=== PATIENT | male | born 1955 | race Caucasian/White ===

== ENCOUNTER 2016-05-16 10:41 | Inpatient (IN) | payer BC ==
[~2016-05-16] VITALS: Ht 167.6 cm; Wt 107.2 kg
[~2016-05-16 10:41] MED LIST: RBTUDL5 PO
[2016-05-16 11:16] LABS: HEMATOCRIT 44.5 % (42-52); MEAN CELL VOLUME 87.1 fL (80-100); MEAN CORPUSCULAR HEMOGLOBIN 31.9 pg (25-34); MEAN CORPUSCULAR HGB CONC 36.6 g/dl (32-36); MEAN PLATELET VOLUME 10.1 fL (7.4-10.4); PLATELET COUNT 264 K/uL (130-400); RED BLOOD COUNT 5.11 M/uL (4.7-6.1); WHITE BLOOD COUNT 9.49 K/uL (4.8-10.8)
[2016-05-16 11:25] LABS: PARTIAL THROMBOPLASTIN RATIO 0.9; PROTHROMBIN TIME (PATIENT) 10.7 SECONDS (9.0-12.0)
--- NOTE | 2016-05-16 11:29 | DIAGNOSTIC IMAGING REPORT ---
SINGLE VIEW CHEST CLINICAL HISTORY: Atypical chest pain. FINDINGS: An AP, portable, upright chest radiograph is obtained No prior studies are available for comparison at the time of dictation. The examination is degraded by portable technique, large body habitus, and patient rotation. The cardiomediastinal heart is top normal for projection. Peribronchial thickening suggests lower airway disease. Subtle airspace opacities are present in the lower lobes bilaterally. No large pleural effusion is identified. No pneumothorax is seen. The bony thorax is grossly intact. IMPRESSION: There is peribronchial thickening with patchy airspace opacities identified in the lower lobes bilaterally. Correlate clinically for evidence of an infectious/inflammatory pneumonitis. Radiographic follow-up to resolution is recommended. Electronically signed by: Doc Ruffin M.D. 05/16/2016 11:28 AM Dictated Date/Time: 05/16/2016 11:26 AM
[2016-05-16 11:34] LABS: BUN/CREATININE RATIO 13.3 (10-20); CALCIUM 9.2 mg/dl (8.5-10.1); CREATININE 1.2 mg/dl (0.60-1.40); POTASSIUM 4.5 mmol/L (3.5-5.1)
[2016-05-16] MEDS ORDERED: ASPI81TA28 PO (11:38)
[2016-05-16] MEDS ORDERED: VNTHFA/IN INH (11:39)
[2016-05-16 11:40] LABS: ALB/GLOB RATIO 1.1 (0.9-2); CKMB/CK RATIO 1.8 (0-3.0)
--- NOTE | 2016-05-16 12:06 | EMERGENCY ROOM VISIT NOTE ---
History Report prepared by Chandrakant: Gage Godoy Under the Supervision of: Dr. Emery Edward M.D. First contact with patient: 11:43 Chief Complaint: CARDIAC ASSESSMENT Stated Complaint: SHORTNESS OF BREATH Nursing Triage Summary: Pt c/o SOB, worse with exertion x several months Pt reports he also has intermittent CP Pt saw therapist asst last week and told his EKG was abnormal "they were supposed to schedule an echo and stress test but we have not heard anything" Pt unable to lay flat History of Present Illness The patient is a 60 year old male who presents to the Emergency Room with complaints of worsening shortness of breath since yesterday. The patient describes the discomfort as feeling like he can't get enough air. This discomfort is worsened significantly with laying flat. Yesterday, the patient complained of chest pain that was coming and going throughout the day. He also complains of feeling dizzy yesterday and today. He also notes one episode of feeling like he was going to pass out. Per patient's , the patient has been having similar symptoms for the past 3 months and they presented to the ED today for further evaluation since his shortness of breath and dizziness were worse than usual. Last week, the patient presented to his PCP who saw an abnormality on his EKG. The patient is supposed to follow-up for a stress test and echo but has not heard back from the office yet. Since last week, the patient has been on an inhaler and a baby Aspirin a day. He denies diaphoresis, nausea, or swelling in his ankles. Source of History: patient Onset: yesterday Position: chest Timing: worsening Modifying Factors (Worsening): other (laying flat) Associated Symptoms: + chest pain, No diaphoresis, No nausea Note: Other associated symptoms: feeling dizzy, feeling like he was going to pass out Denies: swelling in his ankles Review of Systems All systems have been listed, reviewed, and are negative other than those previously mentioned. Please see Additional Medical History Sheet. Past Medical & Surgical Medical Problems: (1) Kidney stones (2) Shortness of breath Family History Patient reports no known family medical history. Social History Smoking Status: Never Smoker Alcohol Use: occasionally Drug Use: none Marital Status: Housing Status: lives with family Occupation Status: employed Current/Historical Medications Scheduled Aspirin (Aspirin Ec), 81 MG PO DAILY Scheduled PRN Albuterol Hfa (Ventolin Hfa), 2 PUFFS INH Q4H PRN for SOB/Wheezing Allergies Coded Allergies: No Known Allergies (Unverified , 05/16/16) Physical Exam Vital Signs Date Time Temp Pulse Resp B/P Pulse Ox O2 Delivery O2 Flow Rate FiO2 05/16/16 13:00 90 22 140/93 95 Room Air 05/16/16 12:02 99 24 161/94 96 Room Air 05/16/16 11:14 98 05/16/16 11:11 95 05/16/16 10:51 36.8 104 16 178/93 95 Room Air Physical Exam GENERAL: Patient awake, alert, oriented x 3. Patient follows commands. Patient does not appear toxic. Patient is adequately hydrated and well- nourished. SKIN: No erythema, pallor, cyanosis or rash HEENT: Normal head, pupils equal, reactive to light and accommodation. Neck: Without adenopathy, no neck vein distention. LUNGS: Clear to auscultation. No wheezes, no rales, no rhonchi. HEART: Regular rate. No murmurs. No gallops. No rubs ABDOMEN: Obese. No masses, no rebound, no hepatomegaly or splenomegaly. EXTREMITIES: No signs of trauma. No pedal or pretibial edema. No calf or thigh tenderness. NEUROLOGIC: Cranial nerves II-XII within normal limits. No gross motor sensory function deficits. Medical Decision & Procedures ER Provider Diagnostic Interpretation: X ray results are stated below per my interpretation and the radiologist's interpretation. SINGLE VIEW CHEST CLINICAL HISTORY: Atypical chest pain. FINDINGS: An AP, portable, upright chest radiograph is obtained No prior studies are available for comparison at the time of dictation. The examination is degraded by portable technique, large body habitus, and patient rotation. The cardiomediastinal heart is top normal for projection. Peribronchial thickening suggests lower airway disease. Subtle airspace opacities are present in the lower lobes bilaterally. No large pleural effusion is identified. No pneumothorax is seen. The bony thorax is grossly intact. IMPRESSION: There is peribronchial thickening with patchy airspace opacities identified in the lower lobes bilaterally. Correlate clinically for evidence of an infectious/inflammatory pneumonitis. Radiographic follow-up to resolution is recommended. Electronically signed by: Doc Ruffin M.D. 05/16/2016 11:28 AM Dictated Date/Time: 05/16/2016 11:26 AM Laboratory Results 05/16/16 11:07 05/16/16 11:07 Test 05/16/16 11:07 Red Blood Count 5.11 M/uL (4.7-6.1) Mean Corpuscular Volume 87.1 fL (80-100) Mean Corpuscular Hemoglobin 31.9 pg (25-34) Mean Corpuscular Hemoglobin Concent 36.6 g/dl (32-36) RDW Standard Deviation 44.3 fL (36.4-46.3) RDW Coefficient of Variation 13.9 % (11.5-14.5) Mean Platelet Volume 10.1 fL (7.4-10.4) Prothrombin Time 10.7 SECONDS (9.0-12.0) Prothromb Time International Ratio 1.0 (0.9-1.1) Activated Partial Thromboplast Time 23.3 SECONDS (21.0-31.0) Partial Thromboplastin Ratio 0.9 D-Dimer 710 ug/L FEU (0-500) Anion Gap 9.0 mmol/L (3-11) Est Creatinine Clear Calc Drug Dose 74.3 ml/min Estimated GFR () 74.7 Estimated GFR (Non- 64.4 BUN/Creatinine Ratio 13.3 (10-20) Calcium Level 9.2 mg/dl (8.5-10.1) Total Bilirubin 0.7 mg/dl (0.2-1) Aspartate Amino Transf (AST/SGOT) 48 U/L (15-37) Alanine Aminotransferase (ALT/SGPT) 85 U/L (12-78) Alkaline Phosphatase 92 U/L (45-117) Total Creatine Kinase 201 U/L (39-308) Creatine Kinase MB 3.7 ng/ml (0.5-3.6) Creatine Kinase MB Ratio 1.8 (0-3.0) Troponin I 0.055 ng/ml (0-0.045) Pro-B-Type Natriuretic Peptide 631 pg/ml (0-900) Total Protein 7.5 gm/dl (6.4-8.2) Albumin 4.0 gm/dl (3.4-5.0) Globulin 3.5 gm/dl (2.5-4.0) Albumin/Globulin Ratio 1.1 (0.9-2) Laboratory results as stated above per my review. Medications Administered Medications (Trade) Dose Ordered Sig/Cathy Route Start Time Stop Time Status Last Admin Dose Admin Enoxaparin Sodium 40 mg 40 mg Q24H SC 05/16/16 13:00 06/15/16 12:59 05/16/16 15:51 40 MG Sodium Chloride (1/2 Nss 1000ml) 1,000 ml @ 100 mls/hr Q10H IV 05/16/16 12:54 06/15/16 12:53 05/16/16 15:53 100 MLS/HR ECG Indication: SOB/dyspnea Rate (beats per minute): 107 Rhythm: sinus tachycardia Findings: LBBB, PVC (occassional), left axis deviation Comparison ECG Date: When compared to EKG from 05/09/2016, continued left bundle branch block and new ST elevation in precordial leads. ED Course 1144: Past medical records reviewed. The patient was evaluated in room B4. A complete history and physical examination was performed. 1223: At this time, I discussed the patient's case with Dr. Yair COLON and he agreed to accept the patient for further evaluation. Medical Decision I considered multiple diagnoses including myocardial infarction, chest wall pain , pericarditis, myocarditis, aortic emergencies, pulmonary embolism, congestive heart failure, GI causes, and other significant cardiopulmonary disorders. The patient's been having some exertional his dyspnea for months but seems to be much worse over the past 2-3 days. Multiple labs, EKG and imaging were obtained. Please see above. The patient's blood sugar is elevated. The patient's troponin is elevated. The patient is having multiple PVCs and at times bigeminy. There is some questionable elevation of his ST segments in his precordial leads although he has a pre-existing left bundle-branch block. I discussed care with the patient, his and the hospitalist. The patient will require further evaluation in the hospital. Consults Time Called: 1218 Consulting Physician: Dr. Yair COLON Returned Call: 1223 At this time, I discussed the patient's case with Dr. Mazariegos and he agreed to accept the patient for further evaluation. Impression Primary Impression: Acute coronary syndrome Additional Impression: Hyperglycemia Scribe Attestation The scribe's documentation has been prepared under my direction and personally reviewed by me in its entirety. I confirm that the note above accurately reflects all work, treatment, procedures, and medical decision making performed by me. Departure Information Dispostion Being Evaluated By Hospitalist Referrals Jake Arredondo PA-C (PCP) Problem Qualifiers
[2016-05-16] MEDS ORDERED: SODIUM CHLORIDE 0.45% 1000ML 1,000 ML IV SCH (12:54)
[2016-05-16] MEDS ORDERED: ONDANSETRON INJ 2 MG/ML 2 ML VIAL IV PRN (13:00)
[2016-05-16] MEDS ORDERED: MoRPHine SULFATE 2 MG/ML CARP IV PRN (13:00)
[2016-05-16] MEDS ORDERED: NITROGLYCERIN 0.4 MG SL PER TAB CHARGE SL PRN (13:00)
[2016-05-16] MEDS ORDERED: ALUMINUM/MAGNESIUM/SIMETH (MAALOX MAX) 30 ML UDC PO PRN (13:00)
[2016-05-16] MEDS ORDERED: ACETAMINOPHEN 325 MG TAB PO PRN (13:00)
--- NOTE | 2016-05-16 13:15 | History and Physical ---
History & Physical Date & Time of Service: May 16, 2016 at 13:06 Chief Complaint: Shortness Of Breath Primary Care Physician: Jake Arredondo PA-C History of Present Illness 60 y/o male without reported medical history presents today with complaint of an episode of near-syncope and a 3 month history of chronic intermittent shortness of breath. The SOB started following a URI in January of this past year which was treated and resolved. The SOB itself is present predominantly while laying flat and manifests as SOB w/ exertion. It has not been accompanied by chest pain. He was referred to a hydraulic press tender (Raimundo) and had an abn EKG and referred for stress and echo which were being scheduled when he had this recent episode. He had been feeling SOB overnight and had trouble sleeping, as well as constipation - when he got up in the AM and took a hot shower, he felt suddenly syncopal - tunnel vision and feeling like he would pass out. He did not (no HI/LOC). Called his spouse for a ride to the [facility] ED. At present, his SOB is at baseline. He reports no chest pain, palpitations, vision/hearing changes, lightheadedness, n/v/d, CARREON, numbness/tingling, weakness. Past Medical/Surgical History Medical Problems: (1) Kidney stones Status: Chronic Family History Myocardial infarction in first degree male relative of known age 5 siblings w/ AMI all btw 40 and 60 y/o Social History Smoking Status: Never Smoker Smokeless Tobacco Use: Yes Alcohol Use: socially Drug Use: none Marital Status: Housing status: lives with family Occupational Status: employed Immunizations History of Influenza Vaccine: Unknown Multi-Drug Resistant Organisms History of MDRO: No Allergies Coded Allergies: No Known Allergies (Unverified , 05/16/16) Home Medications Scheduled Aspirin (Aspirin Ec), 81 MG PO DAILY Scheduled PRN Albuterol Hfa (Ventolin Hfa), 2 PUFFS INH Q4H PRN for SOB/Wheezing Review of Systems Constitutional: + fatigue, No chills, No fever, No sweats, No weakness Eyes: No discharge, No redness, No worsening of vision ENT: No hearing loss, No nasal symptoms, No sore throat Respiratory: + dyspnea at rest, + dyspnea on exertion, + shortness of breath, No cough, No wheezing Cardiovascular: No chest pain, No edema, No palpitations Abdomen: + constipation, No diarrhea, No nausea, No pain Musculoskeletal: No joint pain, No muscle pain Neurologic: No balance problems, No numbness/tingling, No weakness Integumentary: No itch, No rash Allergic / Immunologic: No environmental allergies, No seasonal allergies Physical Exam Vital Signs Date Time Temp Pulse Resp B/P Pulse Ox O2 Delivery O2 Flow Rate FiO2 05/16/16 13:00 90 22 140/93 95 Room Air 05/16/16 12:02 99 24 161/94 96 Room Air 05/16/16 11:14 98 05/16/16 11:11 95 05/16/16 10:51 36.8 104 16 178/93 95 Room Air General Appearance: no apparent distress, + obese Head: normocephalic, atraumatic Eyes: normal inspection, PERRL, EOMI ENT: normal ENT inspection, hearing grossly normal, pharynx normal Neck: supple, no adenopathy, thyroid normal Respiratory/Chest: chest non-tender, lungs clear, normal breath sounds, + respiratory distress (mild) Cardiovascular: regular rate, rhythm, no JVD, no murmur, + pertinent finding ( trace b/l LE edema) Abdomen/GI: normal bowel sounds, non tender, soft, no organomegaly Extremities/Musculoskelatal: normal inspection, no calf tenderness 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 tested, no motor/sensory deficits, alert, normal mood/affect, oriented x 3 Skin: normal color, warm/dry, no rash Diagnostics Laboratory Results Results Past 24 Hours Test 05/16/16 11:07 Range/Units White Blood Count 9.49 4.8-10.8 K/uL Red Blood Count 5.11 4.7-6.1 M/uL Hemoglobin 16.3 14.0-18.0 g/dL Hematocrit 44.5 42-52 % Mean Corpuscular Volume 87.1 80-100 fL Mean Corpuscular Hemoglobin 31.9 25-34 pg Mean Corpuscular Hemoglobin Concent 36.6 32-36 g/dl RDW Standard Deviation 44.3 36.4-46.3 fL RDW Coefficient of Variation 13.9 11.5-14.5 % Platelet Count 264 130-400 K/uL Mean Platelet Volume 10.1 7.4-10.4 fL Prothrombin Time 10.7 9.0-12.0 SECONDS Prothromb Time International Ratio 1.0 0.9-1.1 Activated Partial Thromboplast Time 23.3 21.0-31.0 SECONDS Partial Thromboplastin Ratio 0.9 Sodium Level 138 136-145 mmol/L Potassium Level 4.5 3.5-5.1 mmol/L Chloride Level 104 98-107 mmol/L Carbon Dioxide Level 25 21-32 mmol/L Anion Gap 9.0 3-11 mmol/L Blood Urea Nitrogen 16 7-18 mg/dl Creatinine 1.20 0.60-1.40 mg/dl Est Creatinine Clear Calc Drug Dose 74.3 ml/min Estimated GFR () 74.7 Estimated GFR (Non- 64.4 BUN/Creatinine Ratio 13.3 10-20 Random Glucose 196 70-99 mg/dl Calcium Level 9.2 8.5-10.1 mg/dl Total Bilirubin 0.7 0.2-1 mg/dl Aspartate Amino Transf (AST/SGOT) 48 15-37 U/L Alanine Aminotransferase (ALT/SGPT) 85 12-78 U/L Alkaline Phosphatase 92 45-117 U/L Total Creatine Kinase 201 39-308 U/L Creatine Kinase MB 3.7 0.5-3.6 ng/ml Creatine Kinase MB Ratio 1.8 0-3.0 Troponin I 0.055 0-0.045 ng/ml Total Protein 7.5 6.4-8.2 gm/dl Albumin 4.0 3.4-5.0 gm/dl Globulin 3.5 2.5-4.0 gm/dl Albumin/Globulin Ratio 1.1 0.9-2 Impression Assessment and Plan 60 y/o male w/ heavy FHx of cardiac dz and 3 months of SOB w/ abn EKG @ [facility] cardiology w/ SOB and elevated troponin w/ presyncope Shortness of breath - etiologies considered include: ACS, CHF, pericarditis, other underlying CV disease, w/ elevated troponin - obtain outpt EKG - admit to tele - EKG in AM - trend troponin x 3 - TSH - morphine PRN chest pain - ASA 81mg qAM - nitro SL PRN chest pain - consult cardiology (Raimundo pt, recently eval'd) HTN - no h/o similar - hydralazine 5mg IV q6P - t/c further agent if no improvement and based on testing Dispo: Shortness of breath of unknown cause w/ elevated troponin, LBBB on EKG VTE Prophylaxis VTE Risk Assessment Done? Y/N: Yes Risk Level: Moderate Note Addendum. Elevated D-dimer but in the setting of chronic issue without tachycardia with abnormal echocardiogram - after discussion w/ Dr. Eubanks, will perform cardiology evaluation primarily and hold on imaging for dimer at this time pending cath to avoid overload w/ dye. pt informed and understands.
[2016-05-16 13:40] VITALS: BP 158/106; PULSE 97; TEMP 36.8; Ht 167.6 cm; Wt 107.2 kg
[2016-05-16] MEDS ORDERED: PERFLUTREN LIPID MICROSPHERE (DEFINITY) IV ONE (14:40)
[2016-05-16] MEDS ORDERED: OPTIRAY 320 IV PRN (15:30)
--- NOTE | 2016-05-16 15:45 | ECHOCARDIOGRAM REPORT ---
*NOTICE TO RECEIVING [employer] This information is strictly Confidential and protected under [place] law. [place] law prohibits you from making any further disclosure of this information unless further disclosure is expressly permitted by the written consent of the person to whom it pertains or is authorized by law. A general authorization for the release of medical or other information is not sufficient for this purpose. Hospital accepts no responsibility if the information is made available to any other person, INCLUDING THE PATIENT. Interpretation Summary * Name: ZANE LALA Study Date: 05/16/2016 02:13 PM BP: 158/106 mmHg * Patient Location: C.2T\S\S242\S\2 HR: 97 * : 1955 (M/d/yyyy) Gender: Male Height: 66 in * Age: 60 yrs Ethnicity: CA Weight: 242 lb * Ordering Physician: Corwin Eubanks * Referring Physician: Self, Referred * Performed By: Surekha Mcintyre RDCS * * Reason For Study: CHF * BSA: 2.2 m2 * History: CHF * -- Conclusions -- * The left ventricle is moderately dilated. * Left ventricular systolic function is severely reduced. * The left atrium is moderately dilated. * Poorly characterized. At least stage I Procedure Details * A contrast injection of Definity was performed to improve assessment of LV function. * Contrast was injected into an intravenous site in the right arm. * One vial of Definity ultrasound contrast was diluted in normal saline to a total volume of 10 ml. A total of '2' ml of solution was administered during imaging. * Lot # [id number] of Definity utilized for procedure. * Expiration date JUN 07. * The attending nurse who injected the contrast agent was SURESH CRUMP. Left Ventricle * The left ventricle is moderately dilated. * There is normal left ventricular wall thickness. * Ejection Fraction = 20-25%. * Left ventricular systolic function is severely reduced. * The septum is akinetic. The remaining rebolledo are severely hypokinetic Right Ventricle * The right ventricle is normal in size and function. Atria * The left atrium is moderately dilated. * Right atrial size is normal. Mitral Valve * The mitral valve anatomy is normal. * There is no mitral regurgitation noted. Tricuspid Valve * The tricuspid valve is not well visualized, but is grossly normal. * There is trace tricuspid regurgitation. Aortic Valve * The aortic valve is not well visualized. * No hemodynamically significant valvular aortic stenosis. * Trace aortic regurgitation. Pericardium/Pleural * There is no pericardial effusion. Left Ventricular Diastolic Function * Poorly characterized. At least stage I MMode 2D Measurements and Calculations IVSd 0.97 cm IVSs 1.6 cm LVIDd 6.0 cm LVIDs 4.8 cm LVPWd 1.3 cm LVPWs 1.8 cm IVS/LVPW 0.75 FS 20.6 % EDV(Teich) 179.0 ml ESV(Teich) 105.1 ml EF(Teich) 41.3 % EDV(cubed) 214.4 ml ESV(cubed) 107.4 ml EF(cubed) 49.9 % % IVS thick 67.9 % % LVPW thick 35.6 % LV mass(C)d 288.7 grams LV mass(C)dI 133.1 grams/m\S\2 LV mass(C)s 358.5 grams LV mass(C)sI 165.3 grams/m\S\2 SV(Teich) 73.9 ml SI(Teich) 34.1 ml/m\S\2 SV(cubed) 107.0 ml SI(cubed) 49.3 ml/m\S\2 LVAd ap4 41.3 cm\S\2 LVLd ap4 9.2 cm EDV(MOD-sp4) 152.0 ml LVAs ap4 32.0 cm\S\2 LVLs ap4 8.9 cm ESV(MOD-sp4) 96.4 ml EF(MOD-sp4) 36.6 % LVAd ap2 34.4 cm\S\2 LVLd ap2 8.8 cm EDV(MOD-sp2) 108.0 ml LVAs ap2 25.8 cm\S\2 LVLs ap2 8.8 cm ESV(MOD-sp2) 61.6 ml EF(MOD-sp2) 43.0 % SV(MOD-sp4) 55.6 ml SI(MOD-sp4) 25.6 ml/m\S\2 SV(MOD-sp2) 46.4 ml SI(MOD-sp2) 21.4 ml/m\S\2
[2016-05-16 15:49] VITALS: BP 149/95; PULSE 97; TEMP 36.8; O2SAT 93
[2016-05-16] MEDS: ENOXAPARIN 40 MG/0.4 ML SYR SC SCH (15:51)
[2016-05-16 16:01] VITALS: O2SAT 93
--- NOTE | 2016-05-16 16:08 | CARDIOLOGY CONSULTATION ---
DATE OF CONSULTATION: 05/16/2016 REFERRING PHYSICIAN: Dr. Corwin Shah. HISTORY OF PRESENT ILLNESS: Mr. Ronald Gonzalez is a 60-year-old gentleman known to me from clinic who has been experiencing shortness of breath primarily nighttime for several months. Generally speaking, the patient has difficulty lying flat in bed due to nasal congestion and a sense of dyspnea. The patient had been tried on several regimens as an outpatient in order to alleviate his symptoms including antibiotics and inhaled beta antagonist without relief. The patient presented cardiology clinic several weeks ago and at that time was advised to undergo outpatient testing involving echocardiogram and perfusion imaging. The patient states that last evening, he became more short of breath. He could not lie flat in bed and needed to sit upright. He ambulated around his residence with minimal improvement in his symptoms. He eventually went to take a warm shower and during the shower he started feeling dizzy and lightheaded and he had symptoms consistent with presyncope. He sat down and the symptoms resolved. The patient subsequently presented to the Emergency Room for evaluation. He states that prior to arrival in the Emergency Room, his symptoms had all but resolved. At this time the patient does not complain of significant dyspnea, dizziness or lightheadedness. The patient has been struggling with symptoms for approximately 4 months. He does not have significant exertional dyspnea most of the time, but did report one episode after shoveling snow where he was notably dyspneic. He has rare symptoms of chest discomfort that are well localized in the left pectoral area. These episodes are not exclusively associated with exertion and generally are shortlived, lasting only a few minutes in duration. PAST MEDICAL HISTORY: Significant for allergic rhinitis and nephrolithiasis. OUTPATIENT MEDICATIONS: Include a daily baby aspirin and albuterol on p.r.n. basis. MEDICAL ALLERGIES: No known medical allergies. PAST SURGICAL HISTORY: No known surgical history. FAMILY HISTORY: The patient does have several brothers, he is the youngest of his siblings. They do have evidence of heart disease, but it is not clear whether this is premature in nature. 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 He is a nonsmoker and denies heavy alcohol. ROS: A complete 10-system ROS was performed, the pertinent positives were noted in the HPI PHYSICAL EXAMINATION: GENERAL: The patient does not appear in any acute distress. He is a pleasant individual who is alert and oriented. His mood and affect appeared normal. He answered all questions appropriately. VITAL SIGNS: Include blood pressure 158/106, his pulse is 97. HEENT: Sclerae are anicteric. Extraocular movements were intact. Palpation of submandibular region did not reveal any significant lymphadenopathy. The carotids are palpable bilaterally. There are no bruits on auscultation. There is no evidence of thyromegaly. Cannot appreciate any jugular venous distention, although the neck tissues are redundant. LUNGS: Auscultation of both lung mccullough reveal them to be clear. He had good air movement. There were no rales, wheezes or rhonchi. There was no use of accessory muscles with respiration. HEART: Revealed him to be in a regular rhythm with occasional ectopy. I did not appreciate any murmur on exam. ABDOMEN: Soft and nontender but obese. EXTREMITIES: Evaluation both wrists revealed radial pulses that were equal in intensity. There is no evidence of cyanosis or clubbing. Evaluation of lower extremities did not reveal any significant peripheral edema. I did not appreciate any rashes on exam today. LABORATORY STUDIES: Obtained in the Emergency Department include white cell count 9.4, hemoglobin 16.3, platelet count of 264. Sodium is 138, potassium is 4.5, BUN was 16, creatinine was 1.2. Liver function tests are mildly elevated with an AST of 48 and ALT of 85. Cardiac troponin was 0.055. Single view chest x-ray was obtained in the Emergency Department, which was concerning for patchy air space opacities in the lower lobes suggestive of an inflammatory or infectious process. ASSESSMENT AND PLAN: 1. Dyspnea. The patient has had several months of dyspnea that generally speaking is stable in character. Last evening and earlier this morning he appeared to have acute worsening of these symptoms, the etiology is yet unclear. Most of the symptoms in the past have been related to clogged nasal passages, although there was an element of overt dyspnea even when his nasal passages were clear. As an outpatient he had several tests scheduled, which we will complete here in the hospital. I did order an echocardiogram today and we will see what his left ventricular function looks like. I do not believe he has significant valvular disease based on his physical examination. He does have an element of hypertension, he could have an element of diastolic dysfunction as well. Pending results of the echocardiogram and serum biomarkers we will recommend an evaluation of his coronaries. If he has significant reduced left ventricular systolic function then we will recommend coronary angiography as well as if he has elevations in his cardiac biomarkers. 2. Elevated cardiac troponin. This is minimally elevated, I think we will wait for serial markers. If they are within normal limits we could probably proceed with perfusion imaging rather than coronary angiography. 3. Hypertension. The patient's blood pressure is slightly elevated today, continue to monitor during this hospitalization and depending on the results of his other tests recommend antihypertensive therapy. 4. Left bundle-branch block: Chronic. 5. Pre-syncope: Not likley related to conduction disease, but more likely situational given the hot shower, etc. WIll need an evaluation of his LV function and monitoring on telemetry. At this point it seems reasonable to continue him on his present medical therapy which includes aspirin and enoxaparin, since he is symptom-free currently I do not believe there is additional need for nitrates or aggressive diuresis. Should have the results of his echocardiogram shortly and we could base additional recommendations upon the results of that test. ADDENDUM: I reviewed his echocardiogram. He has severely reduced LV function. I discussed coronary angiography and, if he can lay flat tomorrow, will plan on a cardiac cath. BIENVENIDO
[2016-05-16] MEDS ORDERED: FUROSEMIDE INJ 20 MG in SYRINGE 0 ML IV ONE (18:45)
[2016-05-16 19:27] LABS: THYROID STIMULATING HORMONE 2.21 uIu/ml (0.300-4.500)
[2016-05-16 19:57] VITALS: BP 148/82; PULSE 103; TEMP 36.3; O2SAT 92
[2016-05-16] MEDS: NITROGLYCERIN OINT 2% 1GM PACKET EXT SCH (21:55)
[2016-05-17] VITALS (21 sets, daily range): BP systolic 101–162; BP diastolic 61–113; PULSE 71–132; TEMP 36.8–37; O2SAT 93–98
[2016-05-17] MEDS: NITROGLYCERIN OINT 2% 1GM PACKET EXT SCH ×2 (03:36→09:21)
[2016-05-17 09:17] LABS: HEMATOCRIT 42.8 % (42-52); MEAN CELL VOLUME 87.2 fL (80-100); MEAN CORPUSCULAR HEMOGLOBIN 31.2 pg (25-34); MEAN CORPUSCULAR HGB CONC 35.7 g/dl (32-36); MEAN PLATELET VOLUME 9.8 fL (7.4-10.4); PLATELET COUNT 254 K/uL (130-400); RED BLOOD COUNT 4.91 M/uL (4.7-6.1)
[2016-05-17] MEDS: ASPIRIN 81 MG ECTAB PO SCH (09:21)
[2016-05-17 09:41] LABS: BUN/CREATININE RATIO 13.9 (10-20); CALCIUM 8.8 mg/dl (8.5-10.1); CREATININE 1.1 mg/dl (0.60-1.40); POTASSIUM 3.9 mmol/L (3.5-5.1)
[2016-05-17] MEDS ORDERED: NiCARDipine HCL INJ 2.5 MG/ML 10 ML AMP ONE (12:55)
[2016-05-17] MEDS ORDERED: HEPARIN SOD (PORCINE) 1000 UNIT/ML 10 ML VIAL ONE (12:56)
[2016-05-17] MEDS ORDERED: NITROGLYCERIN/D5W 100MCG/ML 20ML SYR ONE (12:56)
[2016-05-17] MEDS ORDERED: MIDAZOLAM HCL 1 MG/ML 2ML VIAL ONE (13:09)
[2016-05-17] MEDS ORDERED: FENTANYL CITRATE INJ 50 MCG/1 ML 2 ML VIAL ONE (13:09)
--- NOTE | 2016-05-17 13:37 | Procedure Note ---
Pre-Mod Sedation Assessment General Date of Moderate Sedation: May 17, 2016. Vital Signs: Vital Signs Past 12 Hours Date Time Temp Pulse Resp B/P Pulse Ox O2 Delivery O2 Flow Rate FiO2 05/17/16 13:30 66 18 150/90 97 Room Air 05/17/16 12:01 36.9 71 18 138/70 96 Room Air 05/17/16 11:30 36.9 71 18 140/93 96 Room Air 2.0 05/17/16 08:53 37.0 18 156/99 98 Room Air 05/17/16 08:00 Nasal Cannula 2.0 05/17/16 08:00 36.8 75 18 134/80 93 Room Air 05/17/16 04:00 Nasal Cannula 2.0 05/17/16 03:33 37.0 91 18 117/73 93 Room Air Review Cardiovascular: regular rate, rhythm Pre-Sedation Airway Assessment Oral Cavity: WNL Able to Visualize Vocal Cords: No Short Thick Neck: No Hx of Sleep Apnea: No Smoking Status: Never Smoker Mallampati Classification: Class III ASA Classification: Class III Procedure Planning Contraindications-for Mod Sed: None Yes Notes The planned sedation has been discussed with the patient and consent obtained. I have identified the patient, determined the appropriateness of sedation and have assessed the patient immediately prior to the procedure. All medicine(s) and interventions are by my order.
--- NOTE | 2016-05-17 13:41 | Cardiology Procedure Brief Nt ---
Preliminary Cardiology Note Procedure Date May 17, 2016. Pre-Procedure Diagnosis CHF Post-Procedure Diagnosis non-ischemic CM Procedure(s) Performed coronary angiography, right radial Credit Card Associate Raimundo Keyboard Instrument Repairer(s) none Estimated Blood Loss 10cc Medication(s) Versed/fentanyl Preliminary Findings Normal coronaries Recommendations Medical therapy Specimens None Complication(s) None Disposition PCU
[2016-05-17] MEDS: ENOXAPARIN 40 MG/0.4 ML SYR SC SCH (15:35)
--- NOTE | 2016-05-17 16:14 | CARDIAC CATH REPORT ---
DATE OF SERVICE: 05/17/2016. PROCEDURE PERFORMED: 1. Left heart catheterization. 2. Selective coronary angiography. STAFF LOAN REPRESENTATIVE: Corwin Eubanks M.D. INDICATION: Mr. Ronald Gonzalez is a 60-year-old gentleman who had recently discovered cardiomyopathy based on electrocardiographic abnormalities as well as elevated cardiac biomarkers in the setting of reduced LV function. He was felt to be a good candidate for coronary arteriography. PROCEDURE IN DETAIL: The patient was informed of the risks, benefits and alternative to the intended procedure. He understands such and wished to proceed. He was taken to the cardiac catheterization suite in a fasting state. Conscious sedation was administered per protocol and the patient was monitored electrocardiographically throughout today's procedure. The right wrist area was prepped and draped in the usual sterile fashion. An area over the radial artery was subsequently anesthetized using subcutaneous administration of Xylocaine solution. The right radial artery was then accessed using modified Seldinger technique and a 5 Italian arterial sheath was placed at this site over a guidewire. This sheath was used to facilitate passage of the cardiac catheter for selective coronary angiography and left heart catheterization. Angiography was performed in multiple orthogonal views prior to removal of the catheter and sheath. Hemostasis was achieved at the access site using manual pressure. The patient tolerated the procedure well. There were no immediate complications. FINDINGS: HEMODYNAMICS: Opening aortic pressure was 119/83. Left ventricular pressure was 131/13 with left ventricular end diastolic pressure of 30. CORONARY ANGIOGRAPHY: 1. LEFT MAIN. Left main coronary artery was extremely short and no evidence of disease. 2. LEFT ANTERIOR DESCENDING. Left anterior descending artery was a large transapical vessel which was free of significant obstructive disease. 3. LEFT CIRCUMFLEX. The left circumflex artery was a nondominant vessel. It branched off very early in the left main which made engagement difficult. There were no significant obstructive lesions in the left circumflex distribution. 4. RIGHT CORONARY ARTERY. The right coronary artery was a dominant artery which provided the PDA. There was no evidence of obstructive disease in this distribution. IMPRESSION: 1. Normal coronary anatomy without evidence of obstructive coronary disease. 2. Right dominant system. 3. Slightly elevated left ventricular end diastolic pressure. PLAN: The patient will be returned to the [facility] for additional monitoring. Based on his cardiomyopathy and findings of his study he will be initiated on medical therapy for what is presumed to be nonischemic cardiomyopathy.
[2016-05-17] MEDS ORDERED: FUROSEMIDE INJ 20 MG in SYRINGE 0 ML IV ONE (16:45)
[2016-05-17] MEDS: LISINOPRIL 5 MG TAB PO SCH (17:02)
[2016-05-17 18:37] LABS: FERRITIN 644.4 ng/ml (8.0-388.0)
--- NOTE | 2016-05-17 18:54 | Family Medicine Progress Note ---
Progress Note Date of Service May 17, 2016. Subjective Pt evaluation today including: conversation w/ patient, physical exam, chart review, lab review, review of studies, review of inpatient medication list Voiding: no voiding problems Patient reports improved shortness of breath since admission. He is able to get up and walk to the bathroom this morning but is mildly short of breath even with this still. He is able to lie down to 30 degrees on his side but anything more flat and he becomes short of breath. All Other Systems: Reviewed and Negative Medications Current Inpatient Medications Medications (Trade) Dose Ordered Sig/Cathy Route Start Time Stop Time Status Last Admin Dose Admin Enoxaparin Sodium (Lovenox Inj) 40 mg Q24H SC 05/16/16 13:00 06/15/16 12:59 05/17/16 15:35 40 MG Acetaminophen (Tylenol Tab) 650 mg Q4H PRN PO 05/16/16 13:00 06/15/16 12:59 Al Hydrox/Mg Hydrox/Simethicone (Maalox Max Susp) 15 ml Q4H PRN PO 05/16/16 13:00 06/15/16 12:59 Ondansetron HCl (Zofran Inj) 4 mg Q6H PRN IV 05/16/16 13:00 06/15/16 12:59 Nitroglycerin (Nitrostat Tab) 0.4 mg UD PRN SL 05/16/16 13:00 06/15/16 12:59 Morphine Sulfate (MoRPHine SULFATE INJ) 2 mg Q30M PRN IV 05/16/16 13:00 05/30/16 12:59 Aspirin (Ecotrin Tab) 81 mg QAM PO 05/17/16 09:00 06/16/16 08:59 05/17/16 09:21 81 MG Ioversol (Optiray 320) 125 ml UD PRN IV 05/16/16 15:30 05/20/16 15:29 Lisinopril (Zestril Tab) 5 mg QAM PO 05/18/16 09:00 06/17/16 08:59 05/17/16 17:02 5 MG Objective Vital Signs Date Time Temp Pulse Resp B/P Pulse Ox O2 Delivery O2 Flow Rate FiO2 05/17/16 17:30 37.0 104 20 143/89 93 Room Air 05/17/16 16:44 36.8 104 17 156/113 96 Room Air 05/17/16 16:00 Room Air 05/17/16 15:42 96 Room Air 05/17/16 15:39 36.9 105 18 162/84 96 Room Air 05/17/16 15:38 36.9 105 18 162/84 96 Room Air 05/17/16 15:03 93 18 151/96 94 Room Air 05/17/16 14:41 36.9 93 17 143/88 94 Room Air 05/17/16 14:15 36.9 96 16 132/86 94 Room Air 05/17/16 14:08 96 Room Air 05/17/16 14:03 36.9 132 16 156/89 96 Room Air 05/17/16 14:00 36.9 95 18 156/89 95 Nasal Cannula 2.0 05/17/16 13:40 60 18 140/91 97 Room Air 05/17/16 13:35 66 18 160/94 97 Room Air 05/17/16 13:30 66 18 150/90 97 Room Air 05/17/16 12:01 36.9 71 18 138/70 96 Room Air 05/17/16 12:00 Nasal Cannula 2.0 05/17/16 11:30 36.9 71 18 140/93 96 Room Air 2.0 05/17/16 08:53 37.0 18 156/99 98 Room Air 05/17/16 08:00 Nasal Cannula 2.0 05/17/16 08:00 36.8 75 18 134/80 93 Room Air 05/17/16 04:00 Nasal Cannula 2.0 05/17/16 03:33 37.0 91 18 117/73 93 Room Air 05/17/16 00:43 37.0 94 18 127/79 96 Nasal Cannula 2.0 05/16/16 23:59 Nasal Cannula 2.0 05/16/16 20:00 Room Air 05/16/16 19:57 36.3 103 22 148/82 92 Room Air Physical Exam General Appearance: WD/WN, no apparent distress Neck: supple, no JVD Respiratory/Chest: no respiratory distress, no accessory muscle use, + crackles (bibasal) Cardiovascular: regular rate, rhythm, no murmur Abdomen: normal bowel sounds, non tender, soft Extremities: no pedal edema, no calf tenderness, normal capillary refill Neurologic/Psychiatric: alert, normal mood/affect, oriented x 3 Skin: normal color, warm/dry, no rash Laboratory Results 05/17/16 08:56 05/17/16 08:56 Test 05/16/16 18:42 05/17/16 02:49 05/17/16 08:56 05/17/16 17:29 Thyroid Stimulating Hormone (TSH) 2.210 uIu/ml (0.300-4.500) Troponin I 0.066 ng/ml (0-0.045) Red Blood Count 4.91 M/uL (4.7-6.1) Mean Corpuscular Volume 87.2 fL (80-100) Mean Corpuscular Hemoglobin 31.2 pg (25-34) Mean Corpuscular Hemoglobin Concent 35.7 g/dl (32-36) RDW Standard Deviation 44.5 fL (36.4-46.3) RDW Coefficient of Variation 13.9 % (11.5-14.5) Mean Platelet Volume 9.8 fL (7.4-10.4) Anion Gap 7.0 mmol/L (3-11) Est Creatinine Clear Calc Drug Dose 80.5 ml/min Estimated GFR () 82.9 Estimated GFR (Non- 71.6 BUN/Creatinine Ratio 13.9 (10-20) Calcium Level 8.8 mg/dl (8.5-10.1) Iron Level 41 mcg/dl (35-175) Total Iron Binding Capacity 295 mcg/dl (250-450) Ferritin 644.4 ng/ml (8.0-388.0) Free Thyroxine 0.84 ng/dl (0.80-1.60) Assessment and Plan 60 y/o male w/ heavy FHx of cardiac dz and 3 months of SOB w/ abn EKG @ [facility] cardiology w/ SOB and elevated troponin w/ presyncope Non ischemic cardiomyopathy - LVEF 20-25%, ?viral myocarditis - appreciate cardiology management - cardiac cath - normal coronaries - started on lisinopril 5mg PO daily - continue on telemetry overnight - trend troponin elevated but stable - TSH WNL Acute heart failure with reduced ejection fraction - appreciate cardiology management - Lasix 20 mg IV given last night appears to have improved his symptoms dramatically. Continue to dose to symptoms - daily weights, I&Os HTN - lisinopril 5mg PO daily Code - Full VTE Prophylaxis - enoxaparin 40 mg SQ daily Disposition - continue on telemetry as per cardiology advice. Aim discharge tomorrow. Resident Tracking Resident Involvement: Resident Care Provided Care Provided: Adult Hospital Medicine History Resident Physician Supervision Note: I was present with Dr. Meredith during the history and exam. I discussed the case with the resident and agree with the findings and plan as documented in the note. Any exceptions or clarifications are listed here. Pt seen and examined at bedside. No acute events overnight. SOB has improved w/ diuretics and BP medications. Cath today reviewed w/ Dr. Eubanks and explained results to patient. Reports no CP, lightheadedness, CARREON, sensory changes, n/v/d/c , abd pain, rashes. General Appearance: WD/WN, no apparent distress (resting at 45 deg angle in bed ) Respiratory: chest non-tender, no respiratory distress, decreased breath sounds (b/l bases), rales (b/l LL) Cardiovascular: normal peripheral pulses, regular rate, rhythm, no murmur, other (trace b/l le edema) Assessment/Plan 60 y/o male w/ heavy FHx of cardiac dz and 3 months of SOB w/ abn EKG @ [facility] cardiology w/ SOB and elevated troponin w/ presyncope Nonischemic cardiomyopathy - tele O/N - lisinopril - furosemide - morphine PRN chest pain - ASA 81mg qAM - nitro SL PRN chest pain - cardiology on board, recommendations appreciated HTN - continue lisinopril Continue monitoring during diuresis
--- NOTE | 2016-05-17 20:56 | CARDIOLOGY PROGRESS NOTE ---
DATE: 05/17/2016 SUBJECTIVE: This morning, Mr. Gonzalez claims to be feeling somewhat better. His breathing is a little bit easier. He claims to be able to lie flat without much difficulty breathing. He denied any symptoms of chest discomfort. He has not noticed any palpitations. He denied any significant dizziness or lightheadedness. PHYSICAL EXAMINATION: GENERAL: He was alert and oriented. His mood and affect appeared normal. He answered all questions appropriately. CURRENT VITAL SIGNS: Include blood pressure of 137/89 with a pulse of 93. LUNGS: Auscultation of both lung mccullough reveals them to be clear. There were no rales, wheezes or rhonchi. He had good respiratory effort without use of accessory muscles. CARDIAC EXAMINATION: Revealed him to be in an irregular rhythm with occasional ectopy. I did not appreciate any murmurs on exam. LABORATORY STUDIES: Obtained today included a sodium of 138, potassium of 3.9, BUN of 15, creatinine 1.0. White cell count was 11.6, hemoglobin was 15.3, platelet count was 254. The patient underwent coronary angiography today which did not reveal any evidence of obstructive coronary disease, left ventricular end-diastolic pressure was approximately 30. ASSESSMENT AND PLAN: 1. Nonischemic cardiomyopathy. Based on the results of the patient's angiography today, he appears to have nonischemic cardiomyopathy, the etiology of which is unclear. Thyroid studies were normal. We will order iron studies for tomorrow, but unlikely to have hemochromatosis ____ not consistent with amyloidosis. We will check Lyme titer and he will likely need screening for obstructive sleep apnea. No history of extensive alcohol abuse. No evidence of tachycardia mediated cardiomyopathy. There is a possibility of sarcoidosis and this can be considered on an outpatient basis as well. 2. Acute decompensated left ventricular systolic failure. The patient did diurese yesterday. We will continue diuresis today. Based on his level of ventricular filling and high filling pressures, he likely needs a daily dose of diuretic for at least a period of time. Additionally, he will need to be started on a standard heart failure regimen to include VIOLETA inhibitor and beta nick which will be titrated upwards on an outpatient basis.
[2016-05-18 03:42] VITALS: BP 107/71; PULSE 71; TEMP 36.7; O2SAT 96
[2016-05-18 04:00] VITALS: O2SAT 96
[2016-05-18 07:16] LABS: BUN/CREATININE RATIO 12.2 (10-20); CALCIUM 8.5 mg/dl (8.5-10.1); CREATININE 1.2 mg/dl (0.60-1.40); POTASSIUM 3.6 mmol/L (3.5-5.1)
[2016-05-18] MEDS: ASPIRIN 81 MG ECTAB PO SCH (08:28)
[2016-05-18 08:32] VITALS: BP 137/83; PULSE 83; TEMP 36.6; O2SAT 95
--- NOTE | 2016-05-18 08:35 | Family Medicine Progress Note ---
Progress Note Date of Service May 18, 2016. Medications Current Inpatient Medications Medications (Trade) Dose Ordered Sig/Cathy Route Start Time Stop Time Status Last Admin Dose Admin Enoxaparin Sodium (Lovenox Inj) 40 mg Q24H SC 05/16/16 13:00 06/15/16 12:59 05/17/16 15:35 40 MG Acetaminophen (Tylenol Tab) 650 mg Q4H PRN PO 05/16/16 13:00 06/15/16 12:59 Al Hydrox/Mg Hydrox/Simethicone (Maalox Max Susp) 15 ml Q4H PRN PO 05/16/16 13:00 06/15/16 12:59 Ondansetron HCl (Zofran Inj) 4 mg Q6H PRN IV 05/16/16 13:00 06/15/16 12:59 Nitroglycerin (Nitrostat Tab) 0.4 mg UD PRN SL 05/16/16 13:00 06/15/16 12:59 Morphine Sulfate (MoRPHine SULFATE INJ) 2 mg Q30M PRN IV 05/16/16 13:00 05/30/16 12:59 Aspirin (Ecotrin Tab) 81 mg QAM PO 05/17/16 09:00 06/16/16 08:59 05/18/16 08:28 81 MG Ioversol (Optiray 320) 125 ml UD PRN IV 05/16/16 15:30 05/20/16 15:29 Lisinopril (Zestril Tab) 5 mg QAM PO 05/18/16 09:00 06/17/16 08:59 05/17/16 17:02 5 MG Objective Vital Signs Date Time Temp Pulse Resp B/P Pulse Ox O2 Delivery O2 Flow Rate FiO2 05/18/16 08:32 36.6 83 20 137/83 95 05/18/16 04:00 96 Room Air 05/18/16 03:42 36.7 71 18 107/71 96 Room Air 05/17/16 23:59 94 Room Air 05/17/16 23:52 36.9 91 18 101/61 94 Room Air 05/17/16 20:00 96 Room Air 05/17/16 18:30 36.8 93 20 137/89 96 Room Air 05/17/16 17:30 37.0 104 20 143/89 93 Room Air 05/17/16 16:44 36.8 104 17 156/113 96 Room Air 05/17/16 16:00 Room Air 05/17/16 15:42 96 Room Air 05/17/16 15:39 36.9 105 18 162/84 96 Room Air 05/17/16 15:38 36.9 105 18 162/84 96 Room Air 05/17/16 15:03 93 18 151/96 94 Room Air 05/17/16 14:41 36.9 93 17 143/88 94 Room Air 05/17/16 14:15 36.9 96 16 132/86 94 Room Air 05/17/16 14:08 96 Room Air 05/17/16 14:03 36.9 132 16 156/89 96 Room Air 05/17/16 14:00 36.9 95 18 156/89 95 Nasal Cannula 2.0 05/17/16 13:40 60 18 140/91 97 Room Air 05/17/16 13:35 66 18 160/94 97 Room Air 05/17/16 13:30 66 18 150/90 97 Room Air 05/17/16 12:01 36.9 71 18 138/70 96 Room Air 05/17/16 12:00 Nasal Cannula 2.0 05/17/16 11:30 36.9 71 18 140/93 96 Room Air 2.0 05/17/16 08:53 37.0 18 156/99 98 Room Air Laboratory Results 05/17/16 08:56 05/18/16 06:38 Test 05/17/16 08:56 05/17/16 17:29 05/18/16 06:38 Red Blood Count 4.91 M/uL (4.7-6.1) Mean Corpuscular Volume 87.2 fL (80-100) Mean Corpuscular Hemoglobin 31.2 pg (25-34) Mean Corpuscular Hemoglobin Concent 35.7 g/dl (32-36) RDW Standard Deviation 44.5 fL (36.4-46.3) RDW Coefficient of Variation 13.9 % (11.5-14.5) Mean Platelet Volume 9.8 fL (7.4-10.4) Iron Level 41 mcg/dl (35-175) Total Iron Binding Capacity 295 mcg/dl (250-450) Ferritin 644.4 ng/ml (8.0-388.0) Free Thyroxine 0.84 ng/dl (0.80-1.60) Lyme Disease IgG Antibody NEG (NEG) Anion Gap 7.0 mmol/L (3-11) Est Creatinine Clear Calc Drug Dose 73.2 ml/min Estimated GFR () 74.7 Estimated GFR (Non- 64.4 BUN/Creatinine Ratio 12.2 (10-20) Calcium Level 8.5 mg/dl (8.5-10.1)
--- NOTE | 2016-05-18 08:59 | CARDIOLOGY PROGRESS NOTE ---
DATE: 05/18/2016 SUBJECTIVE: This morning Mr. Gonzalez claims to be feeling quite well. He was able to sleep somewhat flat last evening. He denies significant breathing trouble at rest. He has no symptoms of chest pain. He has no symptoms in his right arm at the site of his catheterization. PHYSICAL EXAMINATION: GENERAL: He is alert and oriented. His mood and affect appear normal. VITAL SIGNS: Include a blood pressure of 137/83 with pulse of 83. HEENT: Sclerae are anicteric. LUNGS: Auscultation of both lung mccullough reveals them to be clear. CARDIAC: Reveals him to be in a regular rhythm without murmurs. EXTREMITIES: Evaluation of his right hand reveals good perfusion. There is no evidence of cyanosis. He had good sensation. LABORATORY STUDIES: Today included sodium of 140, potassium of 3.6, BUN was 15, creatinine was 1.2. ASSESSMENT AND PLAN: Nonischemic cardiomyopathy. The patient slightly better compensated. I think he can be sent home on regimen to consist of lisinopril, low-dose carvedilol, daily dose of Lasix, and low-dose potassium along with his daily aspirin. I will see him in the outpatient setting for titration of his medications and consideration of additional studies such as an outpatient polysomnogram.
[2016-05-18] MEDS: LISINOPRIL 5 MG TAB PO SCH (09:32)
[2016-05-18 12:34] VITALS: BP 145/80; PULSE 94; TEMP 36.7; O2SAT 94
[2016-05-18] MEDS ORDERED: LSN5 PO (13:20)
[2016-05-18] MEDS ORDERED: CARV3.122 PO (13:20)
[2016-05-18] MEDS ORDERED: FURO-85 PO (13:21)
[2016-05-18] MEDS ORDERED: POTA10CA28 PO (13:21)
--- NOTE | 2016-05-18 14:18 | Discharge Instructions ---
Discharge Instructions Date of Service May 18, 2016. Admission Reason for Admission: Family Hx Of Myocardial Infarction In First Degree Discharge Discharge Diagnosis / Problem: Non ischemic cardiomyopathy Discharge Goals Goal(s): Improve disease control Activity Recommendations Activity Limitations: per Instructions/Follow-up section Lifting Limitations: gradually increase as tolerated Exercise/Sports Limitations: rest today, gradually increase as tolerated May Resume Sexual Activity: when tolerated Shower/Bathe: no limitations . Instructions / Follow-Up Instructions / Follow-Up You were admitted to [facility] for shortness of breath. This was investigated with lab tests, chest XR and echocardiogram. Chest XR showed fluid on your chest (pulmonary edema). The echo showed the efficiency of your heart was markedly decreased (cardiomyopathy) which causes the pulmonary edema. Cardiac catheter showed normal coronary arteries (arteries that supply your heart) and heart enzymes were elevated but stable therefore this was not caused by a heart attack or lack of oxygen delivery to your heart muscle. Other causes such as iron overload and lyme disease were tested for and negative. You were started on lisinopril and carvedilol for the cardiomyopathy. You were started on furosemide (lasix) for the pulmonary edema (heart failure). Your rn school advised continuing aspirin and you can discuss this further at your follow up appointment. You will be followed up by [facility] Cardiology in 1-2 weeks, appointment to be arranged. Of note his glucose level was raised while inpatient. Fasting glucose 160. Recommended to repeat as outpatient in 1-2 weeks with fasting lipid panel (as he notes this was previously elevated). Current Hospital Diet Patient's current hospital diet: AHA Diet (Heart Healthy) Discharge Diet Recommended Diet: AHA Diet (Heart Healthy), Low Sodium Diet (2gm Na) Pending Studies Studies pending at discharge: no Work Instructions Return To Work: after follow-up (with Dr Eubakns) Medical Emergencies . Who to Call and When: Medical Emergencies: If at any time you feel your situation is an emergency, please call 911 immediately. [facility] [address] [id number] [facility], [address] [place] [address] Monday through Monday, from 8:30 am to 5:00 Non-Emergent Contact Non-Emergency issues call your: Booking Clerk . . "Provider Documentation" section prepared by Mj Meredith. VTE Core Measure Inpt VTE Proph given/why not?: Enoxaparin (Lovenox)SQ
[2016-05-18 14:28] VITALS: BP 145/80; PULSE 94; TEMP 36.7; O2SAT 94
--- NOTE | 2016-05-18 15:44 | Discharge Summary ---
Discharge Summary Date of Service May 18, 2016. (Mj Meredith MD) Discharge Summary Admission Date: May 16, 2016 at 13:01 Discharge Date: May 18, 2016 Discharge Disposition: Home Principal Diagnosis: Non ischemic cardiomyopathy Immunizations: Have You Had Influenza Vaccine: Unknown Procedures: 05/17/2016 - Cardiac Catheterization: Normal coronary anatomy without evidence of obstructive coronary disease Consultations: Cardiology - Dr Eubanks (Mj Meredith MD) Principal Diagnosis: Chest pain (Corwin Shah MD) Medication Reconciliation New Medications: Carvedilol (Coreg) 3.125 Mg Tab 1 TAB PO BID for 30 Days, #60 TAB 3 Refills Furosemide (Lasix) 20 Mg Tab 1 TAB PO DAILY for 30 Days, #30 TAB 5 Refills Potassium Chloride (Micro-K Ext Rel) 10 Meq Capcr 10 MEQ PO DAILY for 14 Days, #14 CAP Lisinopril (Lisinopril) 5 Mg Tab 5 MG PO QAM for 30 Days, #30 TAB Continued Medications: Aspirin (Aspirin Ec) 81 Mg Tab 81 MG PO DAILY Discontinued Medications: Albuterol Hfa (Ventolin Hfa) 200 Puffs/30331 Mcg Aers 2 PUFFS INH Q4H PRN for SOB/Wheezing, #1 INHALER Discharge Exam No acute issues overnight. Denies any chest pain or shortness of breath. Keen to go home. All other systems reviewed and otherwise negative. Physical Exam: General Appearance: WD/WN, no apparent distress Eyes: PERRL, EOMI, + pertinent finding (mild drooping of left eye brow with some expressions but able to elevate it with active movements) ENT: normal ENT inspection Neck: supple, no JVD Respiratory/Chest: chest non-tender, lungs clear, normal breath sounds, no respiratory distress, no accessory muscle use Cardiovascular: regular rate, rhythm, no murmur, normal peripheral pulses Abdomen / GI: normal bowel sounds, non tender, soft Neurologic/Psychiatric: stem roller II-XII nml as tested (eye brow intermittent mild droop, otherwise CN 2->12 unremarkable), no motor/sensory deficits, alert, normal mood/affect, oriented x 3 Skin: normal color, warm/dry, no rash (Mj Meredith MD) Hospital Course 60 y/o male w/ heavy FHx of cardiac dz and 3 months of SOB w/ abn EKG @ [facility] cardiology w/ SOB and elevated troponin w/ presyncope Non ischemic cardiomyopathy - no coronary artery disease on cardiac cath. Started on BB and ACEi. Follow up with PCP for cholesterol and diabetes check. Acute heart failure with reduced ejection fraction - continue with lasix 20 mg and potassium supplementation Total Time Spent: Greater than 30 minutes This includes examination of the patient, discharge planning, medication reconciliation, and communication with other providers. (Mj Meredith MD) Total Time Spent: Greater than 30 minutes (Corwin Shah MD) Discharge Instructions Please refer to the electronic Patient Visit Report (Discharge Instructions) for additional information. (Mj Meredith MD) Follow-Up 1 week with PCP. Cholesterol, blood pressure and diabetes check. Follow up with Dr Eubanks in 1-2 weeks (Mj Meredith MD) Additional Copies To Corwin Eubanks MD; Jake Arredondo PA-C Resident Tracking Resident Involvement: Resident Care Provided Care Provided: Adult [facility] (Mj Meredith MD) Resident Tracking Resident Involvement: Resident Care Provided Care Provided: [facility] (Mj Meredith MD) History Resident Physician Supervision Note: I was present with Dr. Meredith during the history and exam. I discussed the case with the resident and agree with the findings and plan as documented in the note. Any exceptions or clarifications are listed here. Pt seen and examined at bedside. Considerable improvement in shortness of breath at rest and lying flat, as well as in leg swelling. Reports no lightheadedness, vision/hearing changes, sensory changes, n/v. noted some swelling of the patient's right upper eyelid which has not been there previous. Reports no coughing, dysphagia, itching, rashes, CARREON. (Corwin Shah MD) General Appearance: WD/WN, no apparent distress Ears, Nose, Throat: normal ENT inspection, TMs normal, pharynx normal Neck: non-tender, full range of motion, supple Respiratory: chest non-tender, lungs clear, normal breath sounds, no respiratory distress Cardiovascular: normal peripheral pulses, regular rate, rhythm, no murmur, other (1+ pitting edema of the b/l LE) (Corwin Shah MD) Assessment/Plan 60 y/o male w/ heavy FHx of cardiac dz and 3 months of SOB w/ abn EKG @ [facility] cardiology w/ SOB and elevated troponin w/ presyncope Nonischemic cardiomyopathy - continue lisinopril, furosemide, ASA, carvedilol. Follow up with cardiology and PCP. HTN - continue lisinopril, coreg (Corwin Shah MD)
[2016-05-19 06:04] LABS: ESTIMATED AVERAGE GLUCOSE 171 mg/dl; HA1C FLAG Normal (Normal)
== END 2016-05-18 15:30 | disposition home or self-care (01) | DRG 286 ==
LOC: ENRESERVDT → ENRESERVTM → C.EDB 10:43 → C.2T 13:01
PROVIDERS: ADMIT Family Medicine; ATTEND Family Medicine
PROC: 4A023N7 Measurement of Cardiac Sampling and Pressure, Left Heart, Percutaneous Approach (ICD-10-PCS; principal; 2016-05-17 13:00)
PROC: B2111ZZ Fluoroscopy of Multiple Coronary Arteries using Low Osmolar Contrast (ICD-10-PCS; principal; 2016-05-17 13:00)
DX: I42.9 Cardiomyopathy, unspecified (principal); I50.21 Acute systolic (congestive) heart failure; Z79.82 Long term (current) use of aspirin; Z82.49 Family history of ischemic heart disease and other diseases of the circulatory system; F17.290 Nicotine dependence, other tobacco product, uncomplicated; I10 Essential (primary) hypertension; I44.7 Left bundle-branch block, unspecified

== ENCOUNTER → 2016-05-20 | Outpatient (CLI) | payer BC ==
[~2016-05-20] MED LIST changes: +ASPI81TA28 PO; +CARV3.122 PO; +FURO-85 PO; +LSN5 PO; +POTA10CA28 PO; -RBTUDL5 PO
[2016-05-20 12:29] LABS: CHOLESTEROL 211 mg/dl (0-200); CHOLESTEROL/HDL RATIO 5.9; HDL CHOLESTEROL 36 mg/dl; MAGNESIUM 2.3 mg/dl (1.8-2.4); TRIGLYCERIDES 367 mg/dl (0-150); VERY LOW DENSITY LIPOPROT CALC 73 mg/dl
== END | disposition home or self-care (01) ==
LOC: C.LABPBG 10:04
PROVIDERS: ATTEND Physician Assistant Medical
DX: R73.9 Hyperglycemia, unspecified (principal); I25.2 Old myocardial infarction

== ENCOUNTER → 2016-10-03 | Outpatient (CLI) | payer BC ==
[~2016-10-03] MED LIST changes: -POTA10CA28 PO
[2016-10-03 12:44] LABS: ESTIMATED AVERAGE GLUCOSE 128 mg/dl; HA1C FLAG Normal (Normal)
== END | disposition home or self-care (01) ==
LOC: C.LABPBG 10:20
PROVIDERS: ATTEND Physician Assistant Medical
DX: E11.65 Type 2 diabetes mellitus with hyperglycemia (principal)

== ENCOUNTER 2023-03-16 06:55 | Observation (INO) ==
--- OUTSIDE RECORDS SUMMARY | 2023-03-16 06:58 | External Medical Summary | Continuity of Care Document ---
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 Name Role Phone Jake Arredondo Primary Care Physician [phone] Encounter [facility] [id number] Date(s): 02/07/23 - 02/07/23 [facility] [address] [facility] [address] [id number] Encounter Diagnosis Rosacea(Discharge Diagnosis) - 02/07/23 Discharge Disposition: Home or Self Care Attending Physician: MD Benito David L Allergies, Adverse Reactions, Alerts No Known Allergies Assessment and Plan Extracted from: Title:Clinical Document Author:MD Benito David L Date:02/07/23 OUTPATIENT NOTE Name: ZANE GONZALEZ Patient Number:[id number] : 1955 Date of Service: 02/07/2023 _ Chief complaint is rosacea. History: Mr Gonzalez is a 67-year-old male comes in with a long history of rosacea. He has been on Finacea in the past have been oral doxycycline in the past but has been otherwise well-controlled in the last few years with metronidazole gel. Uses this about every day. He does wear hat at all times. Does like to be outside but does not use sunscreens. Has no prior history of skin cancer. Medications as per the intake sheet. Medication allergies per the intake sheet. Physical examination: Is a well-developed well-nourished white male type II skin. Alert and oriented x 3. Examination of scalp face ears and neck reveal some fine telangiectasias on the cheeks and nose. There are some erythema on the cheeks. Some patchy erythema on the chin and jawline from her recent shave. Impression: #1 acne rosacea mainly just erythema with no papules or pustules. #2 some razor irritation. Plan: 1% hydrocortisone cream daily after shaving. Continue metronidazole gel 0.75% daily to twice daily as needed. Sun protection was stressed. He will return for recheck on a as needed basis. Medications aspirin 81 mg oral delayed release tablet Start: 07/11/18 12:49:00 EDT, 1 tab, PO, Daily Start Date: 07/11/18 Status: Ordered atorvastatin 40 mg oral tablet Start: 02/07/23 15:36:00 EST Start Date: 02/07/23 Status: Ordered carvedilol 25 mg oral tablet Start: 07/11/18 12:49:00 EDT, 1 tab, PO, bid Start Date: 07/11/18 Status: Ordered Jardiance 25 mg oral tablet Start: 02/07/23 15:36:00 EST Start Date: 02/07/23 Status: Ordered lisinopril 40 mg oral tablet Start: 02/07/23 15:36:00 EST Start Date: 02/07/23 Status: Ordered metFORMIN 1000 mg oral tablet Start: 07/11/18 12:49:00 EDT, 1 tab, PO, bid Start Date: 07/11/18 Status: Ordered metroNIDAZOLE 0.75% topical gel Start: 02/07/23 15:42:00 EST, See Instructions, Disp# 45 g, Refills: 3, 1 APPL TOPICAL DAILY,INSTR:TO FACE FOR ROSACEA, Pharmacy: [facility]/pharmacy #[id number] Start Date: 02/07/23 Status: Ordered Mental Status 02/07/23 Barriers to Learning one year None evide nt Mandatory Health Literacy Documentation Yes Health Literacy Communication Barriers N ever Primary Language Samoan Problem List Condition Confirmation Course Effective Dates Status H ealth Status Informant Rosacea Confirmed Active Senile hyperkeratosis Confirmed Active Tobacco user Confirmed Active Diagnosis Diagnosis Type Effective Dates Health Status Clini cory Service Informant Rosacea Discharge Diagnosis 02/07/23 Procedures Procedure Date Related Diagnosis Body Site Status None Completed Social History Social History Type Response Smoking Status Never smoked 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 History: Mr Gonzalez is a 67-year-old male comes in with a long history of rosacea. He has been on Finacea in the past have been oral doxycycline in the past but has been otherwise well-controlled in the last few years with metronidazole gel. Uses this about every day. He does wear hat at all times. Does like to be outside but does not use sunscreens. Has no prior history of skin cancer. Medications as per the intake sheet. Medication allergies per the intake sheet. Physical examination: Is a well-developed well-nourished white male type II skin. Alert and oriented x 3. Examination of scalp face ears and neck reveal some fine telangiectasias on the cheeks and nose. There are some erythema on the cheeks. Some patchy erythema on the chin and jawline from her recent shave. Impression: #1 acne rosacea mainly just erythema with no papules or pustules. #2 some razor irritation. Plan: 1% hydrocortisone cream daily after shaving. Continue metronidazole gel 0.75% daily to twice daily as needed. Sun protection was stressed. He will return for recheck on a as needed basis. Electronic Signature on File Electronically Reviewed/Signed by: Rodrigo Benito MD Author Signature Dt/Tm:02/07/2023 03:52 PM Department of Dermatology DLS Patient Care team information Care Team Personnel Name: JOSE Arredondo James D Position: Referring Member Role: Primary Care Provider Address: Address: [address] [place] [address] [place] Care Team Related Persons Name: RONNY GONZALEZ Address: home [address], [place] [phone] Name: RONNY GONZALEZ Address: UNKNOWN Address: [address] [address], [place] [phone]
--- NOTE | 2023-03-16 08:02 | History & Physical Report ---
Date of Service March 16, 2023 Assessment & Plan (1) Non-ischemic cardiomyopathy: (2) Left bundle branch block: Plan 1. Plan BiV ICD History of Present Illness Chief Complaint: BOWLING Primary Care Provider: Berna Majano DO PAtient with long-standing non-ischemia CM. PLan BiV ICD for primary prevention of SCD Allergies Allergy/AdvReac Type Severity Reaction Status Date / Time No Known Drug Allergies Allergy NA Verified 03/16/23 07:20 Home Medications Medication Instructions Recorded Confirmed Type aspirin 81 mg tablet,delayed 81 mg PO DAILY #30 tabs 09/25/18 03/16/23 Rx release metformin 1,000 mg tablet 1,000 mg PO BID #180 tabs 04/28/22 03/16/23 Rx lancets (Accu-Chek Softclix #200 ea 05/26/22 12/30/22 Rx Lancets) atorvastatin 40 mg tablet 40 mg PO DAILY #90 tabs 09/26/22 03/16/23 Rx lisinopril 40 mg tablet 40 mg PO DAILY #90 tabs 10/06/22 03/16/23 Rx meloxicam 15 mg tablet 15 mg PO DAILY PRN pain #30 tabs 11/18/22 03/16/23 Rx blood sugar diagnostic (Accu-Chek #200 ea 12/12/22 12/30/22 Rx Cleopatra Plus test strips) carvedilol 25 mg tablet 25 mg PO BID #180 tabs 12/30/22 03/16/23 Rx empagliflozin 25 mg tablet 25 mg PO DAILY #90 tabs 02/08/23 03/16/23 Rx (Jardiance) Past Med/Surg History Medical History COVID-19 (~03/15/22) Hypertension T2DM (type 2 diabetes mellitus) Dyslipidemia Left bundle branch block Chronic systolic heart failure Allergic rhinitis Non-ischemic cardiomyopathy Kidney stones Surgical History No history of previous surgery Family History Father Myocardial infarction, Onset Age: 65 Coronary heart disease Mother MVA (motor vehicle accident) Brother Myocardial infarction Coronary heart disease Brother Heart disorder Denies family history of Ovarian cancer Prostate cancer Breast cancer Colorectal cancer Social History Smoking Status: Never smoker Tobacco Type: Smokeless Tobacco (Dip or Chew) Cigarettes Per Day: 1 can/week; Second Hand Exposure: No; Do You Dip or Chew Tobacco: Yes; Hx Alcohol Use: No Hx Substance Use: No Preferred Language: Scottish Communication Ability: Effective Visual Impairment: No Limitations Hearing Ability: Normal 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 Oriented. Answered all questions Normal respiratory effort Regular rhythm. Normal rate No edema Results & Data Results & Data Vital Signs (Past 12 Hours) Vital Signs Temp Pulse Resp BP Pulse Ox O2 Del Method 03/16/23 07:12 36.8 C 65 16 131/77 96 Room Air
--- NOTE | 2023-03-16 08:03 | Pre Anesthesia Assessment ---
Date of Service March 16, 2023 Pre Sedation Assessment Vital Signs Temp Pulse Resp BP Pulse Ox O2 Del Method 03/16/23 07:12 36.8 C 65 16 131/77 96 Room Air Cardiovascular + regular rate and + regular rhythm Respiratory + respiratory effort normal Pre-Sedation Airway Assessment Smoking Status: Never smoker Hx Sleep Apnea: No Hx Difficult Intubation: No Short, Thick Neck: No Thyromental Distance: > or= 3.5 Finger Breadths Oral Cavity: + WNL Mallampati Class: IV ASA: ASA3 NPO Status Date of Last Intake of Fluids: 03/16/23 Time of Last Intake of Fluids: 06:00 Last Oral Intake of Fluids Comment: sip with meds Date of Last Intake of Solid Food: 03/15/23 Time of Last Intake of Solid Foods: 21:30 Procedure Planning Contraindications for Sedation: none Current Medications Reviewed: Yes Notes The planned sedation has been discussed with the patient. Informed Consent was obtained. I have identified the patient, determined the appropriateness of sedation and have assessed the patient immediately prior to the procedure. All medicine(s) and interventions are by my order.
[2023-03-16 08:06] LABS: Basophils # (auto) 0.07 K/uL (0.00-0.20); Basophils % (auto) 0.7 %; Eosinophils # (auto) 0.28 K/uL (0.00-0.50); Eosinophils % (auto) 2.7 %; Hematocrit (blood only) 45.8 % (42.0-52.0); Hemoglobin 15.8 g/dl (14.0-18.0); Immature Granulocytes # (auto) 0.03 K/uL (0.01-0.20); Immature Granulocytes % (auto) 0.3 %; Lymphocytes # (auto) 3.89 K/uL (1.20-3.40); Lymphocytes % (auto) 37.7 %; Mean Corpuscular Hemoglobin 29.3 pg (25.0-34.0); Mean Corpuscular Hgb Conc 34.5 g/dL (32.0-36.0); Mean Corpuscular Volume 84.8 fL (80.0-100.0); Mean Platelet Volume 9.9 fL (9.4-12.4); Monocytes # (auto) 1.08 K/uL (0.11-0.59); Monocytes % (auto) 10.5 %; Neutrophils # (auto) 4.98 K/uL (1.40-6.50); Neutrophils % (auto) 48.1 %; Platelet Count 330 K/uL (130-400); RDW Coefficient of Variation 13.4 % (11.5-14.5); RDW Standard Deviation 41.6 fL (36.4-46.3); White Blood Count 10.33 K/ul (4.8-10.8)
[2023-03-16 08:21] LABS: BUN Creatinine Ratio 17.8 (10-20); Calcium 9.9 mg/dl (8.6-10.3); Creatinine Clr Calc Pharmacy 66.9 ml/min; Est GFR (African American) 72.5 ml/min; Est GFR (Non-African American) 62.6 ml/min; Potassium 4.1 mmol/L (3.5-5.1)
[2023-03-16] MEDS: VANCOMYCIN HCL 1000MG/20ML VIAL ONE (09:07)
[2023-03-16] MEDS: ceFAZolin 330 MG/ML 1 GM VIAL ONE (09:07)
[2023-03-16] MEDS: BUPIVACAINE 0.25% PF 30 ML VIAL ONE (09:07)
[2023-03-16] MEDS: WATER, STERILE FOR INJ 10 ML VIAL ONE (09:07)
[2023-03-16] MEDS: LIDOCAINE 1% LOCAL 20 ML VIAL ONE (09:07)
[2023-03-16] MEDS: fentaNYL citrate PF 100 MCG/2 ML VIAL ONE (09:58)
[2023-03-16] MEDS: MIDAZOLAM HCL 5 MG/ML 1 ML VIAL ONE (09:59)
[2023-03-16] MEDS ORDERED: ACETAMINOPHEN 325 MG TAB PO PRN (10:12)
[2023-03-16] MEDS ORDERED: oxyCODONE HCL IR 5 MG TAB (IMMEDIATE RELEASE) PO PRN (10:12)
--- NOTE | 2023-03-16 10:15 | Electrophysiology Report ---
Date of Service March 16, 2023 Electrophysiology Procedure Electrophysiology Procedure Report Procedure performed: Implantation of biventricular ICD with left bundle pacing lead Staff manager wastewater: Corwin Eubanks MD Indication: The patient is a 67-year-old gentleman with longstanding history of a nonischemic cardiomyopathy. Despite guideline directed medical therapy continues have ejection fraction less than 35%. He has new Heart Association class 2 symptoms. He has not suffered a myocardial infarction the past 40 days nor had revascularization last 90 days. He has an anticipated longevity greater than 1 year. He has a QRS duration greater than 120 milliseconds is therefore felt to be a good candidate for biventricular device for resynchronization. We had a discussion regarding the risks benefits, alternatives and consequences of no implant. Shared decision making was employed prior to scheduling the procedure. Procedure detail: Patient was informed the risks benefits alternatives to the intended procedure. He understood which proceed. He was taken to the electrophysiology suite in a fasting state. Preoperative antibiotic was administered. Conscious sedation was administered per protocol the patient was monitored electrocardiographically throughout today's procedure. The left upper pectoral areas prepped and draped in usual sterile fashion. This area was anesthetized using subcutaneous menstruation of lidocaine and Marcaine solution. Incision was made at this site and carried down the prepectoralis fascia using sharp dissection. Electrocautery was also employed for dissection as well as for hemostasis. A device pocket was fashioned tissues above the pectoralis muscle. The left axillary vein was then accessed 3 times using modified Seldinger technique. A sheath was placed over guidewire and used facilitate passage of the ICD lead to the right ventricular apex under fluoroscopic guidance. Adequate sensing threshold parameters were obtained prior to active fixation of this lead to the endocardial surface. A sheath was placed over a guidewire and used facilitate passage of the guiding catheter for mapping of the interventricular septum. Once an appropriate location was identified the left bundle pacing lead was advanced into the interventricular septum until the appropriate electrocardiographic characteristics and pacing characteristics were obtained. The catheter and sheath were then removed in the proximal portion lead was then sutured to prepectoralis fascia using nonabsorbable suture. A sheath was placed over the remaining guidewire and used facilitate passage of the lead to the right atrium under fluoroscopic guidance. Adequate sensing threshold parameters were obtained prior to active fixation of this lead to the endocardial surface. The proximal portion lead was then sutured to prepectoralis fascia using nonabsorbable suture. A device pocket was irrigated with antibiotic solution. The leads were then attached to the device. The device and leads were then placed in the pocket the pocket was closed in 3 layers of absorbable suture. Steri-Strips and sterile dressing were applied. The device was tested noninvasively prior conclusion the procedure. The patient tolerated procedure well. There were no immediate complications. Equipment used: Pulse generator: Manager File Medtronic model number PDZA4G1 serial number [id number] Right atrial lead: Manager File Medtronic model 5076 serial number [id number] Right ventricular lead: Manager File Medtronic model 6935M serial number [id number] Left bundle pacing lead: Manager File Medtronic model 3. 830 serial number [id number] Measured data: Right atrial lead: P-waves measured 5.5 mV. Pacing threshold 1 volts at 0.4 milliseconds with a pacing impedance of 494 Ohms Right ventricular lead: R-waves measured 8.1 mV. Pacing threshold 0.5 volts at 0.4 milliseconds with a pacing impedance of 494 Ohms Left bundle pacing lead: R-waves measured 8.1 mV. Pacing threshold was 0.5 volts at 0.4 milliseconds with a pacing impedance of 646 Ohms Impression: Successful implantation of biventricular ICD with left bundle pacing lead MNPG Electrophysiology codes Pacing Procedure 1: Pacin BiV electrode w/Pacer / ICD implant, add on code ICD Procedure 1: ICD: 54644 Insert single or dual ICD system PG Moderate Sedation Codes Moderate Sedation Codes Procedure 1: Sedation/Anesthesia: 20005 Mod Sedation by the same physician;Init15 Min Child Age 5 & Up Procedure 2: Sedation/Anesthesia: 23233 Mod Sedation by the same physician; Ea [id number] Minutes
--- NOTE | 2023-03-16 10:15 | Post Anesthesia Assessment ---
Date of Service March 16, 2023 Post Sedation Assessment Vital Signs Temp Pulse Resp BP Pulse Ox O2 Del Method 03/16/23 07:12 36.8 C 65 16 131/77 96 Room Air Recovery Score Activity: Moves 4 extremities Respiration: Deep Breath/Cough Circulation: +/-20% PreAnes Value Consciousness: Arouseable (by name) Oxygen Saturation: > 92% On Room Air Discharge Sedation Level of Care: Fast Track Phase II Post Sedation Plan On clinical assessment, the patient appears to have tolerated the sedation without complications. Patient is recovering as anticipated. Patient will continue to be monitored by nursing and may be discharged when sedation discharge criteria are met per below protocol. Upon Completions of procedure up to 15 minutes continue every 5 minute vital signs and the P.A.R. score; then discharge to a Phase I or Fast Track to Phase II per the following guidelines: * Discharge Patient to appropriate Phase II area if PAR is 8 or greater or return to pre- procedure baseline. The post - procedure orders will be as directed. * If PAR score is less than 8 or not return to pre-procedure baseline then patient will follow Phase I monitoring till PAR is reached for Phase II. The Phase I may be done in procedure room or may call to secure a Phase I area. * If naloxone or flumazenil are used for reversal, hold in Phase I for continued monitoring from when last reversal dose was given for a minimum of 60 minutes or longer pending the nurse and/or physician discretion of patient condition before discharge to Phase II. Please call the Sedation Physician to re-evaluate and complete post-note for discharge to Phase II area. Do NOT discharge from procedure sedation or Phase 1 until post- sedation evaluation note is complete by procedure /sedation MD Sedation Discharge Instructions to be given to the patient at discharge to home.
[2023-03-16] MEDS ORDERED: MELOXICAM 7.5 MG TAB PO PRN (16:13)
[2023-03-16] MEDS: ceFAZolin 1000MG 1,000 MG/7.5 ML SYR IV ONE (17:52)
--- NOTE | 2023-03-16 20:00 | Electrocardiogram Report ---
Test Reason : Blood Pressure : / mmHG Vent. Rate : 074 BPM Atrial Rate : 074 BPM P-R Int : 156 ms QRS Dur : 160 ms QT Int : 476 ms P-R-T Axes : 020 -55 116 degrees QTc Int : 528 ms Atrial-sensed ventricular-paced rhythm Abnormal ECG When compared with ECG of 17-DEC-2022 01:19, Electronic ventricular pacemaker has replaced Sinus rhythm Confirmed by Corwin Eubanks ([id number]) on 03/16/2023 8:00:09 PM Referred By: Santo Eubanks Confirmed By:Santo Eubanks
[2023-03-16] MEDS: carvediloL 25 MG TAB PO SCH (20:56)
[2023-03-16] MEDS: metFORMIN HCL 500 MG TAB PO SCH (20:56)
--- NOTE | 2023-03-17 08:27 | XRay Report ---
XR chest 2V PA/lateral CLINICAL HISTORY: EXACT TIME ORDERED Evaluate for pneumothorax and l TECHNIQUE: 2 views of the chest were obtained. Comparison: Comparison is made to chest radiograph 12/17/2022 FINDINGS: Interval placement of a implanted defibrillator. The cardiomediastinal silhouette is normal. The lung s are clear. No evidence of pleural effusion or pneumothorax. IMPRESSION: Interval placement of a implanted defibrillator with the leads in satisfactory position. No evidence of pneumothorax. ACT 112: Negative or not required by law. Electronically signed by: Terrance Benoit M.D. 03/17/2023 8:26 AM
[2023-03-17] MEDS: lisinopril 40 MG TAB PO SCH (08:36)
[2023-03-17] MEDS: ASPIRIN 81 MG ECTAB PO SCH (08:36)
[2023-03-17] MEDS: EMPAGLIFLOZIN 25 MG TAB PO SCH (08:36)
[2023-03-17] MEDS: ATORVASTATIN 40 MG TAB PO SCH (08:36)
--- NOTE | 2023-03-17 09:44 | Discharge Summary ---
Date of Service March 17, 2023 Admission HPI Per Admitting Provider PAtient with long-standing non-ischemia CM. PLan BiV ICD for primary prevention of SCD Principal Diagnosis Nonischemic cardiomyopathy Discharge Exam On the day of discharge the device implant site was free of significant ecchymosis. No drainage or significant erythema. No hematoma. Discharge Data Allergies Allergy/AdvReac Type Severity Reaction Status Date / Time No Known Drug Allergies Allergy NA Verified 03/16/23 07:20 Procedures Performed Operation Date: 03/16/23 08:00 Actual Procedures p ICD Insertion Single or Dual - Corwin Eubanks MD s Insertion Single Lead Only - Corwin Eubanks MD Ordered Studies 03/16/23 07:15 EP Lab Images for PACS ONCE Hospital Course (1) Non-ischemic cardiomyopathy: (2) Left bundle branch block: Plan 1. The day of admission the patient underwent implantation of a biventricular ICD using left bundle pacing lead. [employer]. No immediate complications. The following morning device interrogation revealed normal function of all 3 leads. X-ray demonstrated stable lead position without pneumothorax. Wound appeared to be healing well without hematoma or complication. Total Time Total Time Spent Total Time Spent (In Minutes): 20 Discharge Plan Discharge Items Patient Disposition: Home - Self-Care Reason For Visit: ICD IMPLANT Discharge Diagnosis: Non ischemic cardiomyopathy Activity: Per Instructions section Activity Comment: No lifting left arm above shoulder behind neck for 6 weeks Lifting: No more than 10 pounds Bathing: Keep incision dry Bathing Comment: Keep wound dry and Steri-Strips intact until follow-up next week Sexual Activity: When tolerated Exercise/Sports: Rest today Driving/Machine Use: Resume 1 day after discharge Non-emergency contact: Medicaid Specialist Call non-emergency contact if: you have any medication questions, your symptoms worsen, you have a fever, your wound has increased redness, your wound has increased drainage and your wound pain has increased Follow-up/Referrals: Berna Majano DO [Primary Care Provider] - 03/27/23 9:20 am Diet: Carb Consistent or DM2 and Heart Healthy Addtl Attending Provider Instructions: None Pending Studies at Discharge: No Stand-Alone Forms: [employer], Smoking Cessation Medications and DC Order Prescriptions: Continued aspirin 81 mg tablet,delayed release (DR/EC) 81 mg PO DAILY Qty: 30 2RF (DME) lancets [Accu-Chek Softclix Lancets] Misc See Rx Instructions .Route Qty: 200 2RF Rx Instructions: As directed BID atorvastatin 40 mg tablet 40 mg PO DAILY Qty: 90 1RF lisinopril 40 mg tablet 40 mg PO DAILY Qty: 90 1RF meloxicam 15 mg tablet 15 mg PO DAILY PRN (Reason: pain) Qty: 30 0RF Rx Instructions: take once a day NEEDED for pain (DME) Accu-Chek Cleopatra Plus test strp Strip See Rx Instructions .Route Qty: 200 3RF Rx Instructions: As directed daily Jardiance 25 mg tablet 25 mg PO DAILY Qty: 90 3RF metformin 1,000 mg tablet 1,000 mg PO BID Qty: 180 3RF carvedilol 25 mg tablet 25 mg PO BID Qty: 180 3RF Rx Instructions: must administer with a meal/food Discharge Orders: Discharge Order (Routine); Ordered 03/17/23 Ordered By: Corwin Eubanks Admission Data Admit Date/Time: 03/16/23 08:21 Attending Provider: Corwin Eubanks Admit Provider: Corwin Eubanks Primary Care Provider: Berna Majano Other Interventions: Discharge Summary Assessment (RN) Last Done: 03/17/23 10:26 Coding Level of Care Code 10791 IN/OBS DISCH 30 MIN/LESS Diagnoses Non-ischemic cardiomyopathy I42.8 Left bundle branch block I44.7
== END 2023-03-17 11:05 | disposition home or self-care (01) ==
LOC: EP 06:55 → 2S 06:55
PROC: EPB.ICD (2023-03-16 08:00)